=== PATIENT | male | born 1985 | race Caucasian/White ===

== ENCOUNTER 2019-02-14 00:52 | Emergency (ER) | payer MEDICARE, SELFPAY ==
[2019-02-14 00:56] VITALS: BP 169/99; PULSE 69; RESP 16; TEMP 36.4; O2SAT 99
--- NOTE | 2019-02-14 01:28 | W.ED.EXTPRO ---
HPI - Extremity Problem General: Chief complaint: Extremity Injury, Upper Stated complaint: Shoulder pain Time Seen by Provider: 02/14/19 01:22 History of Present Illness: HPI Narrative: Patient complains of left shoulder pain x1 week. Patient says he fell off a porch when his dog pulled him off porch while chasing a cat shoulder started hurting then and it just daily get worse every day he has been able to work and and move it but it hurts where he cannot sleep at night. Patient complains of decreased range of motion denies swelling bruising or other problems. MD Complaint: extremity pain Onset (ago): day(s) Pain Consistency: constant Location: left Severity scale (1-10): 6 Quality: aching Radiation: none Relieving factors: immobilization Associated symptoms: Deny chest pain, fever(s) or rash Review of Systems Const: Denies: fever, chills or body aches Eyes: Denies: change in vision or blurry vision ENMT: Denies: throat pain or nasal congestion Card: Denies: chest pain or shortness of breath on exertion Resp: Denies: shortness of breath, productive cough or non-productive cough GI: Denies: abdominal pain, nausea or vomiting : Denies: difficulty urinating Musc: Reports: extremity pain, joint pain and limited range of motion; Denies: extremity swelling or joint swelling Skin/Breast: Denies: rash Neuro: Denies: headache Psych: Denies: anxiety or depression Sarthak/Lymph: Denies: easy bruising Physical Exam Const: COMMON NORMALS: no apparent distress, average body habitus and oriented x3 HENMT: COMMON NORMALS: normocephalic HEAD & SCALP: normal to inspection and normocephalic FACE & SINUS: normal facial exam Eye: COMMON NORMALS: conjunctivae normal GENERAL EYE: normal appearance of both eyes CONJUNCTIVA: Yes conjunctivae normal Neck/C-Spine: COMMON NORMALS: no JVD Chest: COMMONS NORMALS: inspection of chest normal Resp: COMMON NORMALS: normal respiratory effort and clear to auscultation bilaterally AUSCULTATION: clear to auscultation bilaterally Cardio: COMMON NORMALS: no JVD, regular rate and regular rhythm RATE: regular rate RHYTHM: regular rhythm GI: COMMON NORMALS: normal to inspection, nondistended, normoactive bowel sounds Extremity: COMMON NORMALS: normal to inspection; negative for full ROM LEFT UPPER EXTREMITY: Yes shoulder joint (Patient has tenderness on abduction and adduction to the left shoulder area no swelling no bruising Apley scratch test is positive and inferior and superior aspect) Neuro: COMMON NORMALS: oriented x3 Course Vital Signs: Vital signs: Vital Signs Temperature 97.6 F 02/14/19 00:56 Pulse Rate 69 02/14/19 00:56 Respiratory Rate 16 02/14/19 00:56 Blood Pressure 169/99 02/14/19 00:56 Pulse Oximetry 99 02/14/19 00:56 Discharge Plan Discharge Clinical Impression: Rotator cuff (capsule) sprain Qualifiers: Encounter type: initial encounter Laterality: left Qualified Code(s): S43.422A - Sprain of left rotator cuff capsule, initial encounter Condition: Stable Prescriptions: New tramadol 50 mg tablet 50 mg PO Q6H PRN (Reason: pain) Qty: 14 RF: 0 No Action Valium 5 mg Tablet 5 mg PO BID RF: 0 Discharge Orders: Discharge Order (Routine); Ordered 02/14/19 Ordered By: Oleg Bruce Referrals: Leon Webb, MEDICAL ASSISTANT INSTRUCTOR [Primary Care Provider] - Discharge Diet: Usual diet Discharge Activity: Increase activity as tolerated Patient Instructions: Rotator Cuff Injury (ED) Activity Restrictions/Additional Instructions: Follow-up with medical provider as directed. Take medications as prescribed. Return to the ER are your medical provider if condition worsens. Read and understand discharge instructions. Coding Level of Care Code ED Environmental Services Coordinator for Lionel Meeks
[2019-02-14] MEDS: TRAMadol 50 mg Tablet 100 MG PO (01:35)
== END 2019-02-14 01:45 ==
PROVIDERS: Emergency Provider Nurse Practitioner Family; Family Provider Nurse Practitioner Family; PCP Nurse Practitioner Family
DX: S43.422A Sprain of left rotator cuff capsule, initial encounter (principal); W17.89XA Other fall from one level to another, initial encounter
CPT/HCPCS: 99281

== ENCOUNTER → 2019-03-19 09:16 | Outpatient (BNVA) | payer MEDICARE, SELFPAY | PROVIDERS: Family Provider Nurse Practitioner Family; PCP Nurse Practitioner Family; Visit Provider Nurse Practitioner Family | DX: E78.5 Hyperlipidemia, unspecified (principal); E55.9 Vitamin D deficiency, unspecified; R53.83 Other fatigue; Z79.899 Other long term (current) drug therapy; S49.92XA Unspecified injury of left shoulder and upper arm, initial encounter; X58.XXXA Exposure to other specified factors, initial encounter | CPT/HCPCS: 36415; 73030; 80053; 80061; 82306; 83036; 84443; 85025 ==

== ENCOUNTER → 2019-06-19 07:42 | Outpatient (BNVA) | payer MEDICARE, SELFPAY | PROVIDERS: Family Provider Nurse Practitioner Family; PCP Nurse Practitioner Family; Visit Provider Nurse Practitioner | DX: F43.12 Post-traumatic stress disorder, chronic (principal); F33.2 Major depressive disorder, recurrent severe without psychotic features; F15.90 Other stimulant use, unspecified, uncomplicated | CPT/HCPCS: 99214 ==

== ENCOUNTER → 2019-07-17 07:54 | Outpatient (BNVA) | payer MEDICARE, SELFPAY | PROVIDERS: Family Provider Nurse Practitioner Family; PCP Nurse Practitioner Family; Visit Provider Nurse Practitioner | DX: F33.2 Major depressive disorder, recurrent severe without psychotic features (principal); F43.12 Post-traumatic stress disorder, chronic | CPT/HCPCS: 99214 ==

== ENCOUNTER → 2019-09-27 07:39 | Outpatient (BNVA) | payer MEDICARE, MEDICAID, SELFPAY | PROVIDERS: PCP Nurse Practitioner Family; Visit Provider Psychiatry & Neurology Psychiatry | DX: F43.12 Post-traumatic stress disorder, chronic (principal) | CPT/HCPCS: 99213 ==

== ENCOUNTER → 2019-10-15 08:47 | Outpatient (BNVA) | payer MEDICARE, MEDICAID, SELFPAY | PROVIDERS: PCP Nurse Practitioner Family; Visit Provider Psychiatry & Neurology Psychiatry | DX: F33.2 Major depressive disorder, recurrent severe without psychotic features (principal); F43.12 Post-traumatic stress disorder, chronic; F15.90 Other stimulant use, unspecified, uncomplicated | CPT/HCPCS: 99213 ==